=== PATIENT | female | born 1995 | race Hispanic/Latino ===

== ENCOUNTER 2023-11-11 09:08 | Day surgery (SDC) | payer OTHER ==
[~2023-11-11] VITALS: Ht 167.6 cm; Wt 95.3 kg
[2023-11-11] MEDS ORDERED: BUPIVACAINE HCL PF 0.5 % 50 MG/10 ML SDV ONE (09:28)
[2023-11-11] MEDS ORDERED: LIDOCAINE HCL 1% (10MG/ML) 100 MG/10 ML MDV ONE (09:28)
[2023-11-11] MEDS ORDERED: TRIAMCINOLONE ACETONIDE 40 MG/ML ML ONE ×2 (09:28→09:37)
[2023-11-11] MEDS ORDERED: SODIUM CHLORIDE 0.9% 10 ML SYR ONE ×2 (09:39→09:41)
[2023-11-11] MEDS ORDERED: MIDAZOLAM HCL 2 MG/2 ML VIAL ONE (09:40)
[2023-11-11] MEDS ORDERED: METHOCARBAMOL500 MG PO (09:54)
[2023-11-11] MEDS ORDERED: [UNRECOGNIZED DRUG - CODE] EX (09:54)
[2023-11-11] MEDS ORDERED: VITAMIN D50000 UNI1 (09:55)
[2023-11-11] MEDS ORDERED: NICODERM C21 MG/242 (09:55)
[2023-11-11] MEDS ORDERED: EFFEXOR XR150 MG PO (09:56)
[2023-11-11] MEDS ORDERED: WELLBUTRIN XL300 MG (09:56)
[2023-11-11] MEDS ORDERED: MUPIROCIN2 % EX (09:57)
[2023-11-11] MEDS ORDERED: KENALOG15 GM/TUBE EX (09:57)
[2023-11-11] MEDS ORDERED: ZENZEDI (09:58)
[2023-11-11] MEDS ORDERED: MELOXICAM7.5 MG PO (09:58)
[2023-11-11] MEDS ORDERED: XANAX0.5 MG PO (09:59)
[2023-11-11] MEDS ORDERED: [UNRECOGNIZED DRUG - CODE] (10:00)
[2023-11-11 12:01] VITALS: BP 118/69
== END 2023-11-11 10:38 | disposition home or self-care (01) ==
LOC: ORM 09:08
PROVIDERS: ATTEND Student in an Organized Health Care Education/Training Program
DX: M53.3 Sacrococcygeal disorders, not elsewhere classified (principal); G89.4 Chronic pain syndrome; M54.50 Low back pain, unspecified
CPT/HCPCS: G0260; J3301